=== PATIENT | female | born 1985 | race African-American/Black ===

== ENCOUNTER 2024-07-04 00:15 | Emergency (ER) | payer SELFPAY ==
[~2024-07-04] VITALS: Ht 170.2 cm; Wt 87.0 kg
[2024-07-04 00:19] VITALS: O2SAT 98
[2024-07-04] MEDS: SODIUM CHLORIDE 0.9% 1,000 ML IV ONE (00:45)
[2024-07-04 02:27] LABS: HEMATOCRIT. 34.7 % (36.0-48.0); HEMOGLOBIN. 10.9 g/dL (12.0-16.0); MEAN CORPUSCULAR HEMOGLOBIN 23.1 pg (28.0-32.0); MEAN CORPUSCULAR HGB CONC 31.4 g/dL (31.0-37.0); MEAN CORPUSCULAR VOLUME 73.6 fL (81.0-99.0); MEAN PLATELET VOLUME 8.4 fl (7.4-10.4); PLATELET 210 x1000/uL (130-400); RED BLOOD CELL COUNT 4.72 mill/uL (4.2-5.4); RED CELL DISTRIBUTION WIDTH 16.5 % (11.6-14.6); WHITE BLOOD COUNT 4.5 x1000/uL (4.5-11.0)
[2024-07-04 03:04] LABS: HCG SCREEN NEGATIVE
[2024-07-04 03:07] LABS: DIFFERENTIAL COMMENT 1
[2024-07-04 03:16] LABS: LACTIC ACID 3.6 mmol/L (0.4-2.0)
[2024-07-04 03:18] LABS: CHLORIDE 107 mEq/L (98-107); POTASSIUM 3.5 mEq/L (3.5-5.1); SODIUM 148 mEq/L (136-145)
[2024-07-04 03:21] LABS: CALCIUM 8.7 mg/dL (8.7-10.4); CARBON DIOXIDE 27 mEq/L (21-32)
[2024-07-04 03:23] LABS: *AMPHETAMINES SCREEN URINE NEGATIVE (NEGATIVE); *BARBITURATES SCREEN URINE NEGATIVE (NEGATIVE); *BENZODIAZEPINES SCREEN URINE NEGATIVE (NEGATIVE); *COCAINE SCREEN URINE NEGATIVE (NEGATIVE); CANNABINOID URINE SCREEN NEGATIVE (NEGATIVE); METHADONE URINE SCREEN NEGATIVE (NEGATIVE); OPIATES URINE SCREEN NEGATIVE (NEGATIVE); PHENCYCLIDINE URINE SCREEN NEGATIVE (NEGATIVE)
[2024-07-04 03:24] LABS: ECSTASY MDMA SCREEN URINE NEGATIVE (NEGATIVE)
[2024-07-04 03:26] LABS: CREATININE 0.5 mg/dL (0.6-1.0); GLUCOSE 77 mg/dL (70-105); UREA NITROGEN BLOOD < 5 mg/dL (9-23)
[2024-07-04 03:27] LABS: ALANINE AMINOTRANSFERASE 34 IU/L (10-49); ALBUMIN 4.1 g/dL (3.2-4.8); ASPARTATE AMINOTRANSFERASE 84 IU/L (<34)
[2024-07-04 03:28] LABS: BILIRUBIN DIRECT 0.1 mg/dL (<=3.0); BILIRUBIN TOTAL 0.5 mg/dL (0.1-1.0); PROTEIN TOTAL 7.4 g/dL (6.0-8.3)
[2024-07-04 04:05] VITALS: BP 145/100; PULSE 76; RESP 18; TEMP 36.7; O2SAT 95
[2024-07-04 07:23] LABS: PLATELET ESTIMATE NORMAL
== END 2024-07-04 03:55 | disposition home or self-care (01) ==
LOC: ER 00:15
DX: T51.0X1A Toxic effect of ethanol, accidental (unintentional), initial encounter (principal); R40.4 Transient alteration of awareness; I10 Essential (primary) hypertension; Y92.89 Other specified places as the place of occurrence of the external cause; Z79.899 Other long term (current) drug therapy
CPT/HCPCS: 80076; 80305; 80048; 80320; 84703; 83880; 83605; 85025; 36415; 93005; 96360; 99284; J7030; G0480